=== PATIENT | female | born 1985 | race Caucasian/White ===

== ENCOUNTER 2022-02-07 16:27 | Emergency (ER) | payer BC ==
[2022-02-07] MEDS ORDERED: Sodium Chloride 0.9% 10 ML Syringe FLUSH PRN (17:49)
[2022-02-07] MEDS ORDERED: Sodium Chloride 0.9% 1,000 ML IV ONE (17:49)
[2022-02-07] MEDS ORDERED: Ondansetron 4 MG/2 ML SDV IVPUSH ONE (17:49)
[2022-02-07] MEDS ORDERED: HYDROmorphone 0.5 MG/0.5 ML Syringe IVPUSH ONE (17:49)
[2022-02-07] MEDS ORDERED: Iopamidol 612 MG/ML 100 ML Bottle IVPUSH ONE (18:12)
[2022-02-07] MEDS ORDERED: Ketorolac 30 MG/ML SDV IVPUSH ONE (19:39)
== END 2022-02-07 20:11 | disposition home or self-care (01) ==
LOC: SUPCPDRO 16:27 → JD.ED 16:27
DX: N83.201 Unspecified ovarian cyst, right side (principal); F17.210 Nicotine dependence, cigarettes, uncomplicated; Z86.16 Personal history of COVID-19
CPT/HCPCS: 36415; 74177; 74177-26; 80053; 81003; 83735; 85025; 86140; 96361; 96374; 96375; 99283; 99284-25; J1170; J1885; J2405; J3490; J7030; Q9967

== ENCOUNTER 2022-02-27 08:35 | Emergency (ER) | payer BC ==
[2022-02-27 09:48] LABS: CORONAVIRUS COVID-19 NAA NEGATIVE (NEGATIVE)
[2022-02-27] MEDS ORDERED: Metoclopramide 10 MG/2 ML SDV IVPUSH ONE (09:48)
[2022-02-27] MEDS ORDERED: Lactated Ringers 1,000 ML IV ONE (09:48)
[2022-02-27] MEDS ORDERED: diphenhydrAMINE 50 MG/ML SDV IVPUSH ONE (09:48)
== END 2022-02-27 13:10 | disposition home or self-care (01) ==
LOC: JD.ED 08:35
DX: B34.9 Viral infection, unspecified (principal); R11.2 Nausea with vomiting, unspecified; F17.210 Nicotine dependence, cigarettes, uncomplicated; Z86.16 Personal history of COVID-19; Z20.822 Contact with and (suspected) exposure to COVID-19
CPT/HCPCS: 0241U; 36415; 80053; 81001; 81025; 83690; 85025; 96361; 96374; 96375; 99283; J1200; J2765; J7120